=== PATIENT | male | born 1955 | race Caucasian/White ===

== ENCOUNTER 2018-04-02 14:03 | Emergency (ER) | payer OTHER ==
[2018-04-02 14:49] VITALS: BP 115/60; PULSE 52; TEMP 97.7; BMI 25.0
--- NOTE | 2018-04-02 14:49 | PDOC ---
Rapid Medical Evaluation Time Seen by Provider: 04/02/18 14:44 Medical Evaluation: Allergies Allergy/AdvReac Type Severity Reaction Status Date / Time No Known Allergies Allergy Verified 04/02/13 20:38 I have performed a brief in-person evaluation of this patient. The patient presents with a chief complaint of: from a senior living. Swelling, redness and oozing to right lower extremity Pertinent physical exam findings: erythematous, edematous and warm 2/3 up right LE I have ordered the following: labs The patient will proceed to the ED for further evaluation. Discharge Disposition - Diagnosis Lower extremity cellulitis Qualifiers: Laterality: right Qualified Code(s): L03.115 - Cellulitis of right lower limb - Referrals - Patient Instructions - Post Discharge Activity
--- NOTE | 2018-04-02 15:18 | PDOC ---
History of Present Illness - General Chief Complaint: Wound Stated Complaint: SWELLING RT LEG Time Seen by Provider: 04/02/18 14:44 History Source: Patient, Care Provider Exam Limitations: Other (Patient is developmentally delayed) - History of Present Illness Initial Comments: 04/02/18 15:13 Patient is a 63M with history of intellectual disability, coming from a [facility], HTN, bipolar disorder, chronic leg wounds here today complaining of one week of increased redness and swelling to his right leg. Patient's caregiver states that he's fairly independent, capable of taking trips downtown on his own , and can report what he is feeling. Patient denies chest pain, shortness of breath. Caregiver denies history of blood clots. Patient and healthcare economics manager deny fever, vomiting. Patient denies chills and nausea. Patient denies abdominal pain , dysuria. [facility] is [facility] from [facility] where medications are given to him by nursing at scheduled times. Has good access to primary care and wound care. Past History - Past Medical History Allergies/Adverse Reactions: Allergies Allergy/AdvReac Type Severity Reaction Status Date / Time No Known Allergies Allergy Verified 04/02/13 20:38 Home Medications: Ambulatory Orders Aspirin [ASA -] 81 mg PO DAILY 03/05/13 Carvedilol [Coreg -] 3.125 mg PO DAILY 03/05/13 Docusate Sodium [Colace -] 100 mg PO DAILY 03/05/13 Ferrous Sulfate [Feosol -] 325 mg PO DAILY 03/05/13 Hydrochlorothiazide [Hctz -] 25 mg PO DAILY 03/05/13 Lamotrigine [Lamictal] 600 mg PO DAILY 03/05/13 Multivitamin [Multivitamins] 1 each PO DAILY 03/05/13 Omeprazole [Prilosec (RX)] 20 mg PO DAILY 03/05/13 Quetiapine Fumarate [Seroquel] 800 mg PO HS 03/05/13 Ramipril [Altace] 10 mg PO DAILY 03/05/13 Sertraline HCl [Zoloft 20mg/mL Oral Solution -] 50 mg PO DAILY 03/05/13 Acetaminophen [Tylenol .Regular Strength -] 650 mg PO Q6H PRN #18 tablet COPD: (SLEEP APNEA W/CPAP) HTN: Yes Hypercholesterolemia: Yes - Immunization History Td Vaccination: (VERIFYING WITH [facility]) Immunization Up to Date: Yes - Suicide/Smoking/Psychosocial Hx Smoking Status: No Smoking History: Never smoked Number of Cigarettes Smoked Daily: 0 Information on smoking cessation initiated: No Hx Alcohol Use: No Drug/Substance Use Hx: No Substance Use Type: None Review of Systems - Review of Systems Able to Perform ROS?: Yes Comments:: 04/02/18 15:18 GENERAL/CONSTITUTIONAL: No fever or chills. No weakness. HEAD, EYES, EARS, NOSE AND THROAT: No change in vision. No ear pain or discharge. No sore throat. CARDIOVASCULAR: No chest pain or shortness of breath RESPIRATORY: No cough, wheezing, or hemoptysis. GASTROINTESTINAL: No nausea, vomiting, diarrhea or constipation. GENITOURINARY: No dysuria, frequency, or change in urination. MUSCULOSKELETAL: +R leg pain. No neck or back pain. SKIN: No rash NEUROLOGIC: No headache, vertigo, loss of consciousness, or change in strength/ sensation. ENDOCRINE: No increased thirst. No abnormal weight change HEMATOLOGIC/LYMPHATIC: No anemia, easy bleeding, or history of blood clots. ALLERGIC/IMMUNOLOGIC: No hives or skin allergy. *Physical Exam - Vital Signs Last Vital Signs Temp Pulse Resp BP Pulse Ox 97.7 F 52 L 18 115/60 100 04/02/18 14:46 04/02/18 14:46 04/02/18 14:46 04/02/18 14:46 04/02/18 14:46 - Physical Exam Comments: 04/02/18 15:18 GENERAL: Awake, alert, and fully oriented, in no acute distress HEAD: No signs of trauma, normocephalic, atraumatic EYES: PERRLA, EOMI, sclera anicteric, conjunctiva clear, right eye deviation to midline (chronic) ENT: Auricles normal inspection, hearing grossly normal, nares patent, oropharynx clear without exudates. Moist mucosa NECK: Normal ROM, supple, no lymphadenopathy, JVD, or masses LUNGS: No distress, speaks full sentences, clear to auscultation bilaterally HEART: Regular rate and rhythm, normal S1 and S2, no murmurs, rubs or gallops, peripheral pulses normal and equal bilaterally. ABDOMEN: Soft, nontender, normoactive bowel sounds. No guarding, no rebound. No masses R LEG: Non pitting edema to knee, erythematous, warm from just superior to ankle to just inferior to knee with weeping clear discharge NEUROLOGICAL: Cranial nerves II through XII grossly intact, noted R eye deviation to midline. Normal speech, no focal sensorimotor deficits SKIN: Warm, Dry, normal turgor, no rashes or lesions noted. ED Treatment Course - LABORATORY CBC & Chemistry Diagram: 04/02/18 15:05 04/02/18 15:07 - RADIOLOGY Radiology Studies Ordered: Category Date Time Status DUPLEX VASCUL US-1 LEG [US] Stat Ultrasound 04/02/18 15:08 Ordered Medical Decision Making - Medical Decision Making 04/02/18 15:20 Patient is 63M with history of intellectual disability, HTN, chronic leg wounds here today with erythmea to right leg. Vitals normal and stable. DDx includes, but is no limited to: cellulitis, DVT, venous stasis. Patient has no complaints of chest pain, shortness of breath. Patient is intellectually disabled, but would be able to report pain and shortness of breath that would suggest PE. 04/02/18 15:33 EKG shows sinus bradycardia with rate of 58. No st elevations/depressions. Normal axis. Normal intervals. QRS widened to 140. Normal QTc and OR intervals. No significant t wave abnormalities. 04/02/18 16:02 Laboratory Tests 04/02/18 15:05 WBC 5.6 Hgb 12.1 Plt Count 189 CBC, CMP reassuring. US pending. 04/02/18 16:16 DVT us negative for blood clot, does show edema. Will discharge home. Return precautions given. Instructed to follow up with primary care. *DC/Admit/Observation/Transfer Diagnosis at time of Disposition: Lower extremity cellulitis Qualifiers: Laterality: right Qualified Code(s): L03.115 - Cellulitis of right lower limb - Discharge Dispostion Disposition: HOME Condition at time of disposition: Good Decision to Admit order: No - Referrals - Patient Instructions Printed Discharge Instructions: DI for Cellulitis -- Adult Additional Instructions: You were seen in the ED today and diagnosed with cellulitis. Please take your antibiotics as prescribed until the prescription is completed. Please return to the ED if you have any new, worsening or concerning symptoms, especially fevers, increasing redness, and pain. Please follow up with your primary care doctor this week. - Post Discharge Activity
[2018-04-02 15:24] LABS: BASO % 1.3 % (0-2.0); EOS % 5.4 % (0-4.5); HEMATOCRIT 37.5 % (35.4-49); HEMOGLOBIN 12.1 GM/dL (11.7-16.9); LYMPH % 19.2 % (8-40); MCH 32.7 pg (25.7-33.7); MCHC 32.3 g/dl (32.0-35.9); MEAN CELL VOLUME 101.4 fl (80-96); MEAN PLT VOLUME 8.1 fl (7.5-11.1); MONO % 11.7 % (3.8-10.2); NEUT % 62.4 % (42.8-82.8); PLATELET COUNT 189 K/MM3 (134-434); WHITE BLOOD COUNT 5.6 K/mm3 (4.0-10.0)
[2018-04-02 15:45] LABS: ALBUMIN 4.1 g/dl (3.4-5.0); ALK PHOS 92 U/L (45-117); ANION GAP 5 MMOL/L (8-16); BILIRUBIN,TOTAL 0.6 mg/dL (0.2-1); BLOOD UREA NITROGEN 19 mg/dL (7-18); CALCIUM 9.4 mg/dL (8.5-10.1); CHLORIDE 104 mmol/L (98-107); CO2 32 mmol/L (21-32); CREATININE 1.2 mg/dL (0.55-1.3); GLUCOSE,RANDOM 101 mg/dL (74-106); POTASSIUM 4.2 mmol/L (3.5-5.1); SGOT/AST 18 U/L (15-37); SGPT/ALT 21 U/L (13-61); SODIUM 141 mmol/L (136-145); TOT PROT 7.2 g/dl (6.4-8.2)
--- NOTE | 2018-04-02 16:10 | PDOC ---
Attending Attestation - Resident Resident Name: MarkSudeep - ED Attending Attestation I have performed the following: I have examined & evaluated the patient, The case was reviewed & discussed with the resident, I agree w/resident's findings & plan, Exceptions are as noted - HPI HPI: 04/02/18 16:07 63yo M hx intellectual disability, lives in a residential, HTN, chronic leg wounds presents to the ED with RLE swelling and erythema x 1 week. No fevers. Pt denies increasing pain in the RLE. Pt's health care recruiter reports that this has happened to his RLE before and improved with abx. Pt denies all of sxs of chills , headache, weakness, numbness, cp, sob, abd pain, n/v/d. No trauma. - Physicial Exam PE: 04/02/18 16:26 GENERAL: Awake, alert, in no acute distress EYES: Sclera anicteric, conjunctiva clear ENT: Oropharynx clear without exudates. Moist mucosa LUNGS: Breath sounds equal, clear to auscultation bilaterally. No wheezes, and no crackles HEART: Regular rate and rhythm, normal S1 and S2, no murmurs, rubs or gallops ABDOMEN: Soft, nontender, normoactive bowel sounds. No guarding, no rebound. No masses EXTREMITIES: R distal half of calf with circumferential erythema and warmth, non tender. + edema. Distal RLE well perfused with 2+ peripheral pulses NEUROLOGICAL: Cranial nerves intact, 5/5 strength in all 4 extremities, normal sensation to light touch in all 4 extremities, steady gait with cane SKIN: As noted above - Medical Decision Making 04/02/18 16:38 63yo M hx chronic leg wounds with intermittent cellulitis that resolves with abx p/w increasing edema, warmth and redness to R distal calf. No systemic signs of infection. Labs wnl with no leukocytosis. US neg for DVT. Will treat with keflex and bactrim. Wound has been marked to track progress on abx, if no improvement within 48hrs, pt should go to the nearest ED. Plan explained to patient and caregiver. Pt is stable and clinically well appearing I discussed the physical exam findings, ancillary test results and final diagnoses with the patient. I answered all of the patient's questions. The patient was satisfied with the care received and felt comfortable with the discharge plan and treatment plan. The patient will call their primary care physician within 24 hours to arrange follow-up and will return to the Emergency Department with any new, persistent or worsening symptoms.
[2018-04-02] MEDS ORDERED: CEPHALEXIN MONOHYDRATE 500 MG CAPSULE (UD) PO ONE (16:12)
[2018-04-02] MEDS ORDERED: SULFAMETHOXAZOLE/TRIMETHOPRIM 800MG/160MG D.S. TABLET PO ONE (16:12)
[2018-04-02] MEDS ORDERED: SULFAMETHOXAZOLE/TRIMETHOPRIM 800MG/160MG D.S. TABLET ONE (16:16)
[2018-04-02] MEDS ORDERED: CEPHALEXIN MONOHYDRATE 500 MG CAPSULE (UD) ONE (16:16)
--- NOTE | 2018-04-03 11:34 | EKG ---
Test Reason : Blood Pressure : / mmHG Vent. Rate : 058 BPM Atrial Rate : 058 BPM P-R Int : 172 ms QRS Dur : 140 ms QT Int : 440 ms P-R-T Axes : 099 036 027 degrees QTc Int : 431 ms POOR DATA QUALITY, INTERPRETATION MAY BE ADVERSELY AFFECTED SINUS BRADYCARDIA LEFT VENTRICULAR HYPERTROPHY WITH QRS WIDENING ABNORMAL ECG WHEN COMPARED WITH ECG OF 24-JAN-2005 21:33, MINIMAL CRITERIA FOR ANTERIOR INFARCT ARE NO LONGER PRESENT NONSPECIFIC T WAVE ABNORMALITY NOW EVIDENT IN INFERIOR LEADS Confirmed by GEOVANNA CAMPOS, BROOKE ([id number]) on 04/03/2018 11:34:42 AM Referred By: Confirmed By:BROOKE AUSTIN MD
== END 2018-04-02 16:42 | disposition home or self-care (01) ==
LOC: JER 14:03
DX: L03.115 Cellulitis of right lower limb (principal); I10 Essential (primary) hypertension; F78 Other intellectual disabilities
CPT/HCPCS: 36415; 80053; 85025; 87040; 93005; 93010; 93971-TC; 99283-25

== ENCOUNTER 2018-07-08 09:29 | Emergency (ER) | payer OTHER ==
[2018-07-08 09:34] VITALS: BP 147/58; PULSE 63; TEMP 97.2; BMI 25.2
[2018-07-08] MEDS ORDERED: CLINDAMYCIN 600MG PREMIX IVPB 600 MG/50 ML BAG IVPB ONE ×2 (09:54→10:09)
--- NOTE | 2018-07-08 09:59 | PDOC ---
History of Present Illness - General History Source: Patient, Other - History of Present Illness Occurred: reports: yesterday Lower Extremity Pain Location: left: leg <Jennifer HamptonAquilino - Last Filed: 07/08/18 11:38> <Ivanna Waters - Last Filed: 07/08/18 12:19> - General Chief Complaint: Edema Stated Complaint: LT LEG PAIN Time Seen by Provider: 07/08/18 09:49 Past History - Past Medical History COPD: (SLEEP APNEA W/CPAP) HTN: Yes Hypercholesterolemia: Yes - Immunization History Td Vaccination: (VERIFYING WITH [facility]) Immunization Up to Date: Yes - Suicide/Smoking/Psychosocial Hx Smoking Status: No Smoking History: Never smoked Number of Cigarettes Smoked Daily: 0 Hx Alcohol Use: No Drug/Substance Use Hx: No Substance Use Type: None <Meera HamptonScarlet - Last Filed: 07/08/18 11:38> <Ivanna Waters - Last Filed: 07/08/18 12:19> - Past Medical History Allergies/Adverse Reactions: Allergies Allergy/AdvReac Type Severity Reaction Status Date / Time No Known Allergies Allergy Verified 04/02/13 20:38 Home Medications: Ambulatory Orders Aspirin [ASA -] 81 mg PO DAILY 03/05/13 Carvedilol [Coreg -] 3.125 mg PO DAILY 03/05/13 Docusate Sodium [Colace -] 100 mg PO DAILY 03/05/13 Ferrous Sulfate [Feosol -] 325 mg PO DAILY 03/05/13 Hydrochlorothiazide [Hctz -] 25 mg PO DAILY 03/05/13 Lamotrigine [Lamictal] 600 mg PO DAILY 03/05/13 Multivitamin [Multivitamins] 1 each PO DAILY 03/05/13 Omeprazole [Prilosec (RX)] 20 mg PO DAILY 03/05/13 Quetiapine Fumarate [Seroquel] 800 mg PO HS 03/05/13 Ramipril [Altace] 10 mg PO DAILY 03/05/13 Sertraline HCl [Zoloft 20mg/mL Oral Solution -] 50 mg PO DAILY 03/05/13 Acetaminophen [Tylenol .Regular Strength -] 650 mg PO Q6H PRN #18 tablet Cephalexin Monohydrate [Keflex -] 500 mg PO QID #40 capsule 04/02/18 Sulfamethoxazole/Trimethoprim [Bactrim Ds -] 1 tab PO BID #20 tablet 04/02/18 Clindamycin [Cleocin -] 300 mg PO Q6HPO #28 capsule 07/08/18 Review of Systems - Review of Systems Constitutional: No: Chills, Fever, Malaise Respiratory: No: Shortness of Breath Cardiac (ROS): No: Chest Pain, Palpitations <Chrystal Hampton - Last Filed: 07/08/18 11:38> *Physical Exam - Vital Signs Last Vital Signs Temp Pulse Resp BP Pulse Ox 97.2 F L 63 18 147/58 L 100 07/08/18 09:32 07/08/18 09:32 07/08/18 09:32 07/08/18 09:32 07/08/18 09:32 - Physical Exam General Appearance: Yes: Appropriately Dressed. No: Apparent Distress HEENT: positive: Normal Voice Neck: positive: Supple Respiratory/Chest: positive: Lungs Clear, Normal Breath Sounds. negative: Respiratory Distress Cardiovascular: positive: Regular Rate, S1, S2 Extremity: positive: Other (venous stasis changes to b/l LE w/ diffuse erythema and increased warmth to L lower leg, armando ctive drainage, pedal pulses intact) Integumentary: positive: Dry, Warm Neurologic: positive: Alert, Normal Mood/Affect <Chrystal Hampton - Last Filed: 07/08/18 11:38> - Vital Signs Last Vital Signs Temp Pulse Resp BP Pulse Ox 97.2 F L 63 18 147/58 L 100 07/08/18 09:32 07/08/18 09:32 07/08/18 09:32 07/08/18 09:32 07/08/18 09:32 <Ivanna Waters - Last Filed: 07/08/18 12:19> Moderate Sedation - Procedure Monitoring Vital Signs: Procedure Monitoring Vital Signs Temperature 97.2 F L 07/08/18 09:32 Pulse Rate 63 07/08/18 09:32 Respiratory Rate 18 07/08/18 09:32 Blood Pressure 147/58 L 07/08/18 09:32 O2 Sat by Pulse Oximetry (%) 100 07/08/18 09:32 <Chrystal Hampton - Last Filed: 07/08/18 11:38> - Procedure Monitoring Vital Signs: Procedure Monitoring Vital Signs Temperature 97.2 F L 07/08/18 09:32 Pulse Rate 63 07/08/18 09:32 Respiratory Rate 18 07/08/18 09:32 Blood Pressure 147/58 L 07/08/18 09:32 O2 Sat by Pulse Oximetry (%) 100 07/08/18 09:32 <Ivanna Waters - Last Filed: 07/08/18 12:19> ED Treatment Course - LABORATORY CBC & Chemistry Diagram: 07/08/18 10:24 07/08/18 10:24 - RADIOLOGY Radiology Studies Ordered: Category Date Time Status DUPLEX VASCUL US-1 LEG [US] Stat Ultrasound 07/08/18 09:53 Ordered <Chrystal Hampton - Last Filed: 07/08/18 11:38> - LABORATORY CBC & Chemistry Diagram: 07/08/18 10:24 07/08/18 10:24 - ADDITIONAL ORDERS Additional order review: Laboratory Results 07/08/18 10:24 Sodium 140 Potassium 3.8 Chloride 102 Carbon Dioxide 33 H Anion Gap 5 L BUN 16 Creatinine 1.0 Creat Clearance w eGFR > 60 Random Glucose 100 Calcium 8.8 Total Bilirubin 0.5 AST 20 ALT 22 Alkaline Phosphatase 91 Total Protein 7.4 Albumin 4.2 07/08/18 10:24 RBC 3.61 L MCV 103.5 H MCHC 34.6 RDW 14.2 MPV 8.5 Neutrophils % 60.0 Lymphocytes % 20.3 Monocytes % 12.1 H Eosinophils % 6.2 H Basophils % 1.4 - Medications Given in the ED: ED Medications Discontinued Medications Generic Name Dose Route Start Last Admin Trade Name Freq PRN Reason Stop Dose Admin Clindamycin Phosphate 600 mg in 50 mls @ 100 mls/hr 07/08/18 09:54 07/08/18 10:25 Cleocin 600 Mg Premix Ivpb - IVPB 07/08/18 10:23 100 mls/hr ONCE ONE Administration Protocol <Ivanna Waters - Last Filed: 07/08/18 12:19> Medical Decision Making - Medical Decision Making 07/08/18 09:55 63 yo M, history of intellectual disability, bipolar, HTN, venous stasis (wears compression stockings) w/ recurrent lower extremity cellulitis, sent form [facility] with worsening swelling, redness and clear oozing to L leg that hand sprayer noticed last night. Patient denies any fever, chills or malaise. Pt f/u w/ vascular and seen by [facility] last week. Not currently on antibiotics. See exam LLE cellulitis R/o DVT though low suspicion -labs -dose of IV abx -dispo pending 07/08/18 09:59 07/08/18 11:44 Labs and ultrasound negative. Patient evaluated by ED attending, who agrees the patient can be discharged to take antibiotics and follow up with his vascular doctor this week. Strict return precautions given to patient and hand sprayer <Chrystal Hampton - Last Filed: 07/08/18 11:38> - Medical Decision Making I independently examined and evaluated this patient in conjunction with JUSTIN Hampton , mid-level practitioner. I reviewed the case and agree with the mid-level practitioner's assessment, diagnosis and disposition. Pt with chronic stasis changes and edema, similar to RLE. Noted to have multiple excoriations to the LLE with surrounding cellulitis. Will treat with abx. Neg for DVT. DC back to his facility. <Ivanna Waters - Last Filed: 07/08/18 12:19> *DC/Admit/Observation/Transfer <Chrystal Hampton - Last Filed: 07/08/18 11:38> <Ivanna Waters - Last Filed: 07/08/18 12:19> Diagnosis at time of Disposition: Lower extremity cellulitis Qualifiers: Laterality: left Qualified Code(s): L03.116 - Cellulitis of left lower limb - Discharge Dispostion Disposition: HOME Condition at time of disposition: Good - Prescriptions Prescriptions: Clindamycin [Cleocin -] 300 mg PO Q6HPO #28 capsule - Referrals Referrals: Jolie Boateng [Primary Care Provider] - - Patient Instructions Printed Discharge Instructions: Cellulitis Additional Instructions: You were treated for an infection of your specialist this week left lower leg. Your labs and ultrasound were normal. You were given a dose of IV clindamycin here and sent home with a prescription for clindamycin 300 mg every 6 hours for 7 days. If you develop worsening symptoms and or fevers, return to the ER immediately, otherwise follow-up with your vascular specialist
[2018-07-08 10:54] LABS: BASO % 1.4 % (0-2.0); EOS % 6.2 % (0-4.5); HEMATOCRIT 37.4 % (35.4-49); HEMOGLOBIN 12.9 GM/dL (11.7-16.9); LYMPH % 20.3 % (8-40); MCH 35.8 pg (25.7-33.7); MCHC 34.6 g/dl (32.0-35.9); MEAN CELL VOLUME 103.5 fl (80-96); MEAN PLT VOLUME 8.5 fl (7.5-11.1); MONO % 12.1 % (3.8-10.2); PLATELET COUNT 198 K/MM3 (134-434); RBC 3.61 M/mm3 (4.00-5.60); RDW 14.2 % (11.9-15.9); WHITE BLOOD COUNT 4.5 K/mm3 (4.0-10.0)
[2018-07-08 11:00] LABS: ALBUMIN 4.2 g/dl (3.4-5.0); ALK PHOS 91 U/L (45-117); ANION GAP 5 MMOL/L (8-16); BILIRUBIN,TOTAL 0.5 mg/dL (0.2-1); BLOOD UREA NITROGEN 16 mg/dL (7-18); CALCIUM 8.8 mg/dL (8.5-10.1); CHLORIDE 102 mmol/L (98-107); CO2 33 mmol/L (21-32); GLUCOSE,RANDOM 100 mg/dL (74-106); POTASSIUM 3.8 mmol/L (3.5-5.1); SGOT/AST 20 U/L (15-37); SGPT/ALT 22 U/L (13-61); SODIUM 140 mmol/L (136-145); TOT PROT 7.4 g/dl (6.4-8.2)
== END 2018-07-08 12:00 | disposition home or self-care (01) ==
LOC: JER 09:29
DX: L03.116 Cellulitis of left lower limb (principal); I87.8 Other specified disorders of veins; I10 Essential (primary) hypertension; F31.9 Bipolar disorder, unspecified; G47.30 Sleep apnea, unspecified; F79 Unspecified intellectual disabilities
CPT/HCPCS: 36415; 80053; 85025; 93971-TC; 96365; 99281-25

== ENCOUNTER 2020-09-16 20:21 | Emergency (ER) | payer OTHER ==
[2020-09-16 20:42] VITALS: TEMP 98.4; BMI 25.7
[2020-09-16 21:51] LABS: BASO % 1.2 % (0-2.0); EOS % 6.8 % (0-4.5); HEMATOCRIT 31.1 % (35.4-49); HEMOGLOBIN 10.4 GM/dL (11.7-16.9); LYMPH % 17.3 % (8-40); MCH 33.4 pg (25.7-33.7); MCHC 33.4 g/dl (32.0-35.9); MEAN CELL VOLUME 99.7 fl (80-96); MEAN PLT VOLUME 7.5 fl (7.5-11.1); MONO % 9.4 % (3.8-10.2); NEUT % 65.3 % (42.8-82.8); PLATELET COUNT 276 K/MM3 (134-434); RBC 3.11 M/mm3 (4.00-5.60); RDW 14.2 % (11.9-15.9); WHITE BLOOD COUNT 5.7 K/mm3 (4.0-10.0)
[2020-09-16 22:27] LABS: ALBUMIN 3.2 g/dl (3.4-5.0); BLOOD UREA NITROGEN 12.4 mg/dL (7-18); CALCIUM 8.9 mg/dL (8.5-10.1)
[2020-09-16 22:30] LABS: CREATININE 0.9 mg/dL (0.55-1.3)
[2020-09-16 22:32] LABS: BILIRUBIN,TOTAL 0.3 mg/dL (0.2-1)
[2020-09-16] MEDS ORDERED: CLINDAMYCIN HCL 150 MG CAPSULE (FP) PO ONE (22:32)
[2020-09-16] MEDS ORDERED: POTASSIUM CHLORIDE TABS 20 MEQ TABLET.ER (FP) PO ONE ×3 (22:32→22:43)
[2020-09-16] MEDS ORDERED: CLINDAMYCIN HCL 150 MG CAPSULE (FP) ONE (22:43)
[2020-09-16 23:39] VITALS: BP 122/71; PULSE 59
== END 2020-09-17 01:17 | disposition home or self-care (01) ==
LOC: JER 20:21
DX: L03.115 Cellulitis of right lower limb (principal)
CPT/HCPCS: 36415; 80053; 85025; 93971-TC; 99284-25